=== PATIENT | female | born 1980 | race Caucasian/White ===

== ENCOUNTER 2016-08-10 10:07 | Emergency (ER) | payer MEDICAID ==
[2016-08-10] MEDS ORDERED: ONDANSETRON 4 MG/2 ML VIAL IVP ONE (10:21)
[2016-08-10] MEDS ORDERED: NS 1,000 ML IV ONE ×2 (10:26→11:12)
--- NOTE | 2016-08-10 10:27 | UCPHY ---
H & P Time Seen by Provider: 08/10/16 10:26 Patient Type: New HPI/ROS: Chief complaint. Abdominal pain HPI. 36-year-old female with mid abdominal pain vomiting and diarrhea which began at 3:00 a.m.. She describes the pain as crampy. No radiation. No urinary symptoms no fever. No recent travel or known exposure to illness. No similar symptoms previously. No chest discomfort or trouble breathing ROS Constitutional. no fever/chills, no weakness Eyes. no problems with vision ENT. no sore throat, no nasal drainage Cardiovascular. no chest pain Respiratory. no shortness of breath, no cough Abdominal. Mid abdominal pain with nausea vomiting and diarrhea . no problems urinating MS. no calf pain/swelling, no neck/back pain, no joint pain Skin. no rash Lymph. no swollen glands Neuro. no headache, no dizziness, no difficulty walking or with speech Past Medical/Surgical History: Cholecystectomy, orthopedic surgery to shoulder and ankle Social History: Single, nonsmoker, no alcohol Physical Exam: General Appearance: Alert well-developed female moderate distress vital signs are stable Eyes: Pupils equal and round no pallor or injection. ENT, Mouth: Mucous membranes are moist. Respiratory: There are no retractions, lungs are clear to auscultation. Cardiovascular: Regular rate and rhythm. Gastrointestinal: Abdomen is soft with mid abdominal tenderness. No masses. Normal bowel sounds Neurological: Awake and alert, sensory and motor exams grossly normal. Skin: Warm and dry, no rashes. Musculoskeletal: Neck is supple nontender. Extremities symmetrical, full range of motion. Psychiatric: Patient is oriented X 3, there is no agitation. Constitutional: Initial Vital Signs Temperature (C) 36.4 C 08/10/16 10:15 Heart Rate 48 L 08/10/16 10:15 Respiratory Rate 16 08/10/16 10:15 Blood Pressure 145/85 H 08/10/16 10:15 O2 Sat (%) 99 08/10/16 10:15 O2 Delivery Mode Room Air Allergies/Adverse Reactions: hydrocodone Allergy (Intermediate, Verified 08/10/16 10:20) Hives Home Medications: Medication Instructions Recorded Promethazine HCl [Phenergan 25mg 25 mg PO Q6-8PRN PRN #10 tab 08/10/16 (*)] Medical Decision Making - Diagnostics Imaging: CT abdomen and pelvis with IV contrast reviewed by me and discussed with Dr. Monreal shows a normal appendix and no acute findings Procedures: IV normal saline. Zofran for nausea. Dilaudid for pain The patient vomits again after the Zofran. She is given Reglan and Benadryl intravenously ED Course/Re-evaluation: Re-evaluation 12:15 p.m.. The patient has had no further vomiting or diarrhea. Patient is stable. She and I discussed imaging and lab results. We discussed treatment plan including criteria for return and importance of follow- up and further evaluation. She expresses understanding and agreement Differential Diagnosis: I think this likely vomiting and diarrhea type illness. I considered appendicitis and bowel obstruction as well as colitis. There are no acute findings on her CT. Patient is stable - Data Points Laboratory Results: Laboratory Results 08/10/16 10:25 08/10/16 10:25 08/10/16 08/10/16 08/10/16 10:25 10:25 10:25 WBC 13.51 10^3/uL H 10^3/uL (3.80-9.50) RBC 4.99 10^6/uL 10^6/uL (4.18-5.33) Hgb 14.5 g/dL g/dL (12.6-16.3) Hct 43.0 % % (38.0-47.0) MCV 86.2 fL fL (81.5-99.8) MCH 29.1 pg pg (27.9-34.1) MCHC 33.7 g/dL g/dL (32.4-36.7) RDW 14.6 % % (11.5-15.2) Plt Count 273 10^3/uL 10^3/uL (150-400) MPV 11.4 fL fL (8.7-11.7) Neut % (Auto) 88.3 % H % (39.3-74.2) Lymph % (Auto) 7.7 % L % (15.0-45.0) [place] % (Auto) 2.9 % L % (4.5-13.0) Eos % (Auto) 0.1 % L % (0.6-7.6) Baso % (Auto) 0.4 % % (0.3-1.7) Nucleat RBC Rel Count 0.0 % % (0.0-0.2) Absolute Neuts (auto) 11.93 10^3/uL H 10^3/uL (1.70-6.50) Absolute Lymphs (auto) 1.04 10^3/uL 10^3/uL (1.00-3.00) Absolute Monos (auto) 0.39 10^3/uL 10^3/uL (0.30-0.80) Absolute Eos (auto) 0.02 10^3/uL L 10^3/uL (0.03-0.40) Absolute Basos (auto) 0.05 10^3/uL 10^3/uL (0.02-0.10) Absolute Nucleated RBC 0.00 10^3/uL 10^3/uL (0-0.01) Immature Gran % 0.6 % % (0.0-1.1) Immature Gran # 0.08 10^3/uL 10^3/uL (0.00-0.10) Sodium 143 mEq/L mEq/L (134-144) Potassium 3.8 mEq/L mEq/L (3.5-5.2) Chloride 105 mEq/L mEq/L (97-110) Carbon Dioxide 19 mEq/l L mEq/l (22-31) Anion Gap 19 mEq/L H mEq/L (8-16) BUN 8 mg/dL mg/dL (7-23) Creatinine 0.8 mg/dL mg/dL (0.6-1.0) Estimated GFR > 60 Glucose 112 mg/dL H mg/dL (70-100) Calcium 9.5 mg/dL mg/dL (8.5-10.4) Lipase 128.0 IU/L IU/L (23-300) Beta HCG, Qual NEGATIVE Medications Given: Discontinued Medications Diphenhydramine HCl (Benadryl Injection) 25 mg IVP EDNOW ONE Stop: 08/10/16 10:48 Last Admin: 08/10/16 11:00 Dose: 25 mg Hydromorphone HCl (Dilaudid) 0.5 mg IVP EDNOW ONE Stop: 08/10/16 10:48 Last Admin: 08/10/16 11:04 Dose: 0.5 mg Metoclopramide HCl (Reglan Injection) 10 mg IVP EDNOW ONE Stop: 08/10/16 10:48 Last Admin: 08/10/16 11:02 Dose: 10 mg Ondansetron HCl (Zofran) 4 mg IVP EDNOW ONE Stop: 08/10/16 10:22 Last Admin: 08/10/16 10:24 Dose: 4 mg Departure - Departure Disposition: Home, Routine, Self-Care Clinical Impression: Gastroenteritis Condition: Good Instructions: Acute Nausea and Vomiting (ED), Loperamide (By mouth), Acute Diarrhea (ED) Additional Instructions: Frequent, small sips fluids while nauseated. Phenergan as needed for nausea and vomiting. You may purchase Imodium (loperamide) at the grocery store without prescription and this is used for diarrhea. Return for worsening symptoms. Recheck on Friday at [facility] Referrals: SHAWN THOMAS,. [Primary Care Provider] - 2-3 days without fail Prescriptions: Promethazine HCl [Phenergan 25mg (*)] 25 mg PO Q6-8PRN PRN #10 tab PRN Reason: Nausea/Vomiting, Use 1st - PQRS PQRS Measurement: 134: Depression screening and followup, PRIME MD-PHQ2 (12 years and older) Over the last 2 weeks, how often have you been bothered by any of the following problems? 1. Feeling down, depressed, or hopeless? 2. Little interest or pleasure in doing things? Patient answered no to both 1 and 2 130: Documentation of medications. Reviewed all patient medications, doses, route and frequency. 226: Do you smoke? No.
[2016-08-10 10:37] LABS: % IMMATURE GRANULYOCYTES 0.6 % (0.0-1.1); ABSOLUTE IMMATURE GRANULOCYTES 0.08 10^3/uL (0.00-0.10); ADD DIFF? NO; ADD MORPH? NO; ADD SCAN? NO; ATYPICAL LYMPHOCYTE FLAG 0 (0-99); FRAGMENT RBC FLAG 0 (0-99); HEMOGLOBIN 14.5 g/dL (12.6-16.3); LEFT SHIFT FLG 0 (0-99); LIPEMIA HEMOLYSIS FLAG 80 (0-99); MEAN CELL HEMOGLOBIN 29.1 pg (27.9-34.1); MEAN CELL HEMOGLOBIN CONCENTR. 33.7 g/dL (32.4-36.7); MEAN CELL VOLUME 86.2 fL (81.5-99.8); MEAN PLATELET VOLUME 11.4 fL (8.7-11.7); PLATELET CLUMPS FLAG 0 (0-99); PLATELET COUNT 273 10^3/uL (150-400); RED BLOOD CELL COUNT 4.99 10^6/uL (4.18-5.33); RED CELL DISTRIBUTION WIDTH 14.6 % (11.5-15.2)
[2016-08-10 10:39] VITALS: RESP 16; TEMP 97.5
[2016-08-10 10:44] LABS: ANION GAP 19 mEq/L (8-16); CALCIUM 9.5 mg/dL (8.5-10.4); CARBON DIOXIDE 19 mEq/l (22-31); CHLORIDE 105 mEq/L (97-110); CREATININE 0.8 mg/dL (0.6-1.0); GLOMERULAR FILTRATION RATE > 60; GLUCOSE 112 mg/dL (70-100); POTASSIUM 3.8 mEq/L (3.5-5.2); SODIUM 143 mEq/L (134-144)
[2016-08-10] MEDS ORDERED: HYDROmorphONE/DILAUDID 1 MG/ML SYR IVP ONE (10:47)
[2016-08-10] MEDS ORDERED: METOCLOPRAMIDE 10 MG/2 ML VIAL IVP ONE (10:47)
[2016-08-10] MEDS ORDERED: IOPAMIDOL (ISOVUE-300) 100 ML BTL IV ONE (11:30)
[2016-08-10 13:30] VITALS: BP 126/64; PULSE 54; O2SAT 97
== END 2016-08-10 13:10 | disposition home or self-care (01) ==
LOC: CED 10:07
DX: K52.9 Noninfective gastroenteritis and colitis, unspecified (principal)
CPT/HCPCS: 74177-PO; 80048-PO; 83690-PO; 84703-PO; 85025-PO; 96361-PO; 96374-PO; 96375-PO; 99203-PO; G0463-PO; J1170; J1200; J2405; J2765; Q9967

== ENCOUNTER 2016-11-04 06:24 | Emergency (ER) | payer MEDICAID ==
[2016-11-04] MEDS ORDERED: NS 1,000 ML IV ONE (06:42)
--- NOTE | 2016-11-04 06:44 | EDPHY ---
H & P Stated Complaint: epigastric abdominal pain since 2 am today Source: Patient Exam Limitations: No limitations - Personal History LMP (Females 10-55): Now Current Tetanus Diphtheria and Acellular Pertussis (TDAP): Yes - Medical/Surgical History Hx Asthma: No Hx Chronic Respiratory Disease: No Hx Diabetes: No Hx Cardiac Disease: No Hx Renal Disease: No Hx Cirrhosis: No Hx Alcoholism: No Hx HIV/AIDS: No Hx Splenectomy or Spleen Trauma: No Other PMH: Med hx-anxiety disorder, stopped her Xanax alert weeks ago when she found out she was . Surg-Ella,rt shoulder and rt ankle - Family History Significant Family History: No pertinent family hx - Social History Smoking Status: Former smoker Alcohol Use: None Drug Use: None Time Seen by Provider: 11/04/16 06:35 HPI/ROS: CHIEF COMPLAINT: vomiting and epigastric pain HISTORY OF PRESENT ILLNESS: 36-year-old female who is currently awake pregnancies. She has been evaluate the [facility] for positive test but has yet to have an ultrasound for this . She was feeling well when she went to bed last night. No untoward effects. She does note that she does have a history of gastric disorder for which she takes Tums. Has never been on Prilosec or Pepcid. When she woke up at 2:00 a.m. it was due to the epigastric pain did not go through the back as well as sense of profound nausea with subsequent vomiting every hour ever since. The vomitus is foamy and clear without any blood. She does not typically get vomiting with her abdominal come problems Pain itself is located in the epigastrium, does not radiate, is moderate to severe, feels like an ache. She has never had this before until last night at 2 :00 a.m. She has never had any problems necessitating prior ultrasound, but she did have a prior CT scan of the abdomen this August here at this facility which was unremarkable. No prior gastroscopy. Status post cholecystectomy Of note, as she is hyperventilating we did discuss that some 11 weeks ago she was taken off Xanax as she was This is her 7th . REVIEW OF SYSTEMS: 10 point ROS otherwise negative (Phi Tsang) - Physical Exam Exam: General Appearance: Alert, hyperventilating, complaining of numbness and tingling at the extremities. In particular toes. She is obese. Anxious and hyperventilating. Afebrile. Normal phonation. Diaphoretic. Eyes: Pupils equal and round no pallor or injection. No icterus ENT, Mouth: Mucous membranes dry. Pharynx without erythema or exudate. TM Clear. Neck: No adenopathy. Supple. No JVD. Trachea in midline. Respiratory: There are no retractions, lungs are clear to auscultation. Cardiovascular: Regular rate and rhythm, no murmur Abdomen: Soft tender in the epigastrium, no masses, bowel sounds normal. Neurological: Ox3. Skin: Slightly pale, diaphoretic. Musculoskeletal: No joint swelling. Extremities: No edema. Psychiatric: Normal affect. Anxious. (Phi Tsang) Constitutional: Initial Vital Signs Temperature (C) 36.7 C 11/04/16 06:30 Heart Rate 60 11/04/16 06:30 Respiratory Rate 22 H 11/04/16 06:30 Blood Pressure 151/94 H 11/04/16 06:30 O2 Sat (%) 96 11/04/16 06:30 O2 Delivery Mode Room Air Allergies/Adverse Reactions: hydrocodone Allergy (Intermediate, Verified 11/04/16 06:34) Hives Home Medications: Medication Instructions Recorded Trimethobenzamide HCl [Tigan 300MG 300 mg PO TID #20 cap 11/04/16 (*)] Medical Decision Making ED Course/Re-evaluation: 8:00 a.m. I evaluated the patient and reviewed her lab work and imaging with her. Her test results are reassuring. Her abdominal exam is completely benign. She is feeling much better after Zofran Ativan. She is slightly sleepy. We will continue to observe. 10:00 a.m. the patient responded well to Ativan but continued to feel nauseous and vomit after Zofran. She was given Reglan and her symptoms subsided. Her abdominal exam remains benign. She is eager to go home. I will Discharge her at this time. (Ra Jensen) Started Ringer's lactate for volume depletion Given IV Benadryl followed by Reglan 10 mg IV. Laboratory orders initiated as well as orders for an epigastric ultrasound. Subsequently case turned over to the day physician at 0 700 hours (Phi Tsang ) Differential Diagnosis: Differential diagnosis includes, but is not limited to: Gastroenteritis, dehydration, diverticulitis, hepatitis, pancreatitis, renal colic, kidney stones, ureterolithiasis, cholecystitis, appendicitis, gastritis, mesenteric adenitis, food poisoning, anxiety. (Phi Tsang) - Data Points Laboratory Results: Laboratory Results 11/04/16 06:40 11/04/16 06:40 Medications Given: Discontinued Medications Diphenhydramine HCl (Benadryl Injection) 12.5 mg IVP EDNOW ONE Stop: 11/04/16 06:43 Last Admin: 11/04/16 06:52 Dose: Not Given Diphenhydramine HCl (Benadryl Injection) 12.5 mg IVP EDNOW ONE Stop: 11/04/16 06:45 Last Admin: 11/04/16 06:50 Dose: 12.5 mg Sodium Chloride (Ns) 1,000 mls @ 0 mls/hr IV ONCE ONE; Wide Open PRN Reason: Protocol Stop: 11/04/16 06:43 Last Admin: 11/04/16 06:50 Dose: 1,000 mls Lorazepam (Ativan Injection) 1 mg IVP EDNOW ONE Stop: 11/04/16 07:55 Last Admin: 11/04/16 08:07 Dose: 1 mg Metoclopramide HCl (Reglan Injection) 10 mg IVP EDNOW ONE Stop: 11/04/16 06:46 Last Admin: 11/04/16 06:50 Dose: 10 mg Metoclopramide HCl (Reglan Injection) 10 mg IVP EDNOW ONE Stop: 11/04/16 09:37 Last Admin: 11/04/16 09:46 Dose: 10 mg Ondansetron HCl (Zofran) 4 mg IVP EDNOW ONE Stop: 11/04/16 07:45 Last Admin: 11/04/16 07:48 Dose: Not Given Ondansetron HCl (Zofran) 4 mg IVP EDNOW ONE Stop: 11/04/16 07:45 Last Admin: 11/04/16 07:48 Dose: 4 mg Ondansetron HCl (Zofran) 4 mg IVP EDNOW ONE Stop: 11/04/16 08:43 Last Admin: 11/04/16 08:50 Dose: 4 mg Departure - Departure Disposition: Home, Routine, Self-Care Clinical Impression: Acute gastroenteritis, Anxiety Abdominal pain Qualifiers: Abdominal location: epigastric Qualified Code(s): R10.13 - Epigastric pain Condition: Fair Instructions: Gastroenteritis (ED), Abdominal Pain (ED), Anxiety (ED) Referrals: Patient,NotPresent [Primary Care Provider] - As per Instructions [facility],. [Clinic] - As per Instructions Prescriptions: Trimethobenzamide HCl [Tigan 300MG (*)] 300 mg PO TID #20 cap
[2016-11-04] MEDS ORDERED: METOCLOPRAMIDE 10 MG/2 ML VIAL IVP ONE ×2 (06:45→09:36)
[2016-11-04] MEDS ORDERED: METOCLOPRAMIDE 10 MG/2 ML VIAL ONE (06:47)
[2016-11-04 06:57] LABS: % IMMATURE GRANULYOCYTES 0.9 % (0.0-1.1); ABSOLUTE IMMATURE GRANULOCYTES 0.08 10^3/uL (0.00-0.10); ADD DIFF? NO; ADD MORPH? NO; ADD SCAN? NO; ATYPICAL LYMPHOCYTE FLAG 10 (0-99); FRAGMENT RBC FLAG 0 (0-99); HEMATOCRIT 38.5 % (38.0-47.0); HEMOGLOBIN 13.3 g/dL (12.6-16.3); LEFT SHIFT FLG 0 (0-99); LIPEMIA HEMOLYSIS FLAG 90 (0-99); MEAN CELL HEMOGLOBIN 29.2 pg (27.9-34.1); MEAN CELL HEMOGLOBIN CONCENTR. 34.5 g/dL (32.4-36.7); MEAN CELL VOLUME 84.6 fL (81.5-99.8); MEAN PLATELET VOLUME 11.3 fL (8.7-11.7); PLATELET CLUMPS FLAG 0 (0-99); PLATELET COUNT 177 10^3/uL (150-400); RED BLOOD CELL COUNT 4.55 10^6/uL (4.18-5.33); RED CELL DISTRIBUTION WIDTH 14.2 % (11.5-15.2)
[2016-11-04 07:05] LABS: ALANINE AMINOTRANSFERASE 21 IU/L (9-52); ALBUMIN 3.7 g/dL (3.5-5.0); ALKALINE PHOSPHATASE 85 IU/L (38-126); ANION GAP 12 mEq/L (8-16); ASPARTATE AMINOTRANSFERASE 12 IU/L (14-46); BILIRUBIN,TOTAL 0.6 mg/dL (0.1-1.4); BILIRUBIN-CONJUGATED 0.3 mg/dL (0.0-0.5); BILIRUBIN-UNCONJUGATED 0.3 mg/dL (0.0-1.1); CALCIUM 8.8 mg/dL (8.5-10.4); CARBON DIOXIDE 19 mEq/l (22-31); CHLORIDE 107 mEq/L (97-110); CREATININE 0.6 mg/dL (0.6-1.0); GLOMERULAR FILTRATION RATE > 60; GLUCOSE 100 mg/dL (70-100); POTASSIUM 3.7 mEq/L (3.5-5.2); SODIUM 138 mEq/L (134-144); TOTAL PROTEIN 6.7 g/dL (6.3-8.2)
[2016-11-04] MEDS ORDERED: ONDANSETRON 4 MG/2 ML VIAL ONE (07:40)
[2016-11-04] MEDS ORDERED: ONDANSETRON 4 MG/2 ML VIAL IVP ONE ×3 (07:44→08:42)
[2016-11-04 07:53] LABS: COLOR YELLOW; LEUKOCYTE ESTERASE,URINE TRACE (NEGATIVE); NITRITE,URINE NEGATIVE (NEGATIVE); PH,URINE 5.5 (5.0-7.5)
[2016-11-04] MEDS ORDERED: LORazepam 2 MG/ML INJ IVP ONE (07:54)
[2016-11-04 08:07] LABS: MUCUS 1+ /lpf (NONE-1+)
[2016-11-04 08:08] LABS: BACTERIA 1+ /hpf (NONE SEEN)
[2016-11-04 08:10] VITALS: RESP 16
[2016-11-04] MEDS ORDERED: TRIMETHOBENZAMIDE HCL IM PRN (09:18)
[2016-11-04 10:21] VITALS: BP 112/62; PULSE 50; TEMP 99; O2SAT 94
== END 2016-11-04 10:21 | disposition home or self-care (01) ==
LOC: CED 06:24
DX: K52.9 Noninfective gastroenteritis and colitis, unspecified (principal); F41.9 Anxiety disorder, unspecified; E86.9 Volume depletion, unspecified; Z87.891 Personal history of nicotine dependence
CPT/HCPCS: 76705-PO; 80048-PO; 80076-PO; 81003-PO; 81015-PO; 83690-PO; 85025-PO; J1200; J2060; J2405; J2765; J3250